=== PATIENT | female | born 1980 | race Caucasian/White ===

== ENCOUNTER → 2020-07-04 06:47 | Outpatient (CLI) | payer OTHER, SELFPAY ==
[2020-07-05 00:40] LABS: SARS-CoV-2 RNA PCR Negative
== END ==
PROVIDERS: PCP Internal Medicine; Visit Provider Internal Medicine
DX: Z20.822 Contact with and (suspected) exposure to COVID-19 (principal)
CPT/HCPCS: C9803; U0003; U0005

== ENCOUNTER → 2021-10-05 00:22 | Outpatient (CLI) | payer OTHER, SELFPAY ==
[2021-10-05 11:14] LABS: SARS-CoV-2 RNA PCR Negative
== END ==
PROVIDERS: PCP Internal Medicine; Visit Provider Internal Medicine
DX: R07.0 Pain in throat (principal); Z20.822 Contact with and (suspected) exposure to COVID-19
CPT/HCPCS: C9803; U0003; U0005

== ENCOUNTER 2023-08-16 15:15 | Outpatient (CLI) | payer OTHER, SELFPAY | END 2023-08-16 15:16 | disposition home or self-care (01) | LOC: ANHIMG 15:17 | PROVIDERS: PCP Internal Medicine; Visit Provider Internal Medicine | DX: M25.571 Pain in right ankle and joints of right foot (principal) | CPT/HCPCS: 73630 ==